=== PATIENT | male | born 1975 ===

== ENCOUNTER 2021-07-14 11:47 | Emergency (ER) | payer BC, SELFPAY ==
[2021-07-14] MEDS ORDERED: Ketorolac Tromethamine 60 MG/2 ML VIAL ONE (12:29)
[2021-07-15 21:13] LABS: SARS-CoV-2 PCR by NAA Not Detected (NotDetected)
== END 2021-07-14 13:15 | disposition home or self-care (01) ==
LOC: NAV ERS 11:47
DX: R51.9 Headache, unspecified (principal); I10 Essential (primary) hypertension; Z20.822 Contact with and (suspected) exposure to COVID-19; F17.220 Nicotine dependence, chewing tobacco, uncomplicated
CPT/HCPCS: 96372; 99284; J1885; U0003; U0005